=== PATIENT | female | born 1980 | race Caucasian/White ===

== ENCOUNTER 2023-04-25 14:00 | Outpatient (AMB) | payer OTHER, SELFPAY ==
--- NOTE | 2023-04-25 14:14 | MHC.OFFVIS ---
Intake Vital Signs 04/25/23 14:16 Height 5 ft 7 in Weight 170 lb BMI 26.6 BP 110/80 Blood Pressure Location Rt brachial Position Sitting Pulse 99 Pulse Source Pulse Oximeter Pulse Oximetry (%) 100 Oxygen Delivery Method Room Air Intake Visit Reasons: 11/09/22 LETTER SENT [employer]-Ptosis and facial numb-LVMs Intake Note: Pt is here for Ptosis of the (r) eye, ongoing for a long time. Allergies No Known Allergies Allergy (Verified 04/25/23 14:19) Medication List - Last Reconciled 04/25/23 by Queenie Palacio MD naproxen 500 mg PO BID HPI HPI Comments History of Present Illness Details 42y/o female comes for evaluation of left eyelid drooping and facial numbness.She noticed left eye lid drooping about 9 months ago - it was fluctuating. At time sit would be a complete ptosis and when she tries to open she was seeing double .she denies pain. when she is stressed the drooping is worse. she also reports numbness in her left cheek area .No pain or weakness but has tingling she has headaches 2-3/week.she has light sensitivty and usually frontal or occipital . No nausea. she has visual aura sometimes.she denies weakness , any change in speech or swallowing. she also has chronic sleep issues - loud snoring, frequent arousals. [facility] Medical History (Updated 04/25/23 @ 14:56 by Queenie Palacio MD) Hypersomnia Snoring Left facial numbness Ptosis of eyelid, left Migraine Hyperlipidemia Arthritis Seasonal allergies Asthma Eczema Surgical History History of cholecystectomy Family History (Updated 04/25/23 @ 14:50 by Queenie Palacio MD) Mother Cancer Clinical neurofibromatosis Brother Cancer Prostate CA Clinical neurofibromatosis Father No problems noted. Social History Household Members: Family Alcohol intake: never Patient Tobacco Use Status: Never used Tobacco Use of substances other than those prescribed or required for medical reasons: No Review of Systems Const Reports headache(s) ENT Reports headache(s) Musc Reports arthralgias Neuro Reports headache(s) Physical Exam Vital Signs: Last Vital Signs Pulse 99 04/25/23 14:16 BP 110/80 04/25/23 14:16 Pulse Ox 100 04/25/23 14:16 Oxygen Delivery Method Room Air 04/25/23 14:16 BMI result Body Mass Index 26.6 Const General: cooperative, healthy appearing and comfortable Nutritional Appearance: average body habitus Orientation/consciousness: patient oriented x3 Neuro General: patient oriented x3, gait normal, tone normal, moves all extremities and no focal motor deficits Cranial nerves: Yes Facial sensation intact/muscles of mastication intact, Yes Bilaterally intact EOM present, Yes Nystagmus not present, Yes Normal facial strength present, Yes Midline tongue present and Yes Symmetric palate elevation present Cognition (Neuro): normal cognition Gait exam (Neuro): Normal gait present Motor exam (neuro): 5/5 motor strength present throughout and Normal motor muscle tone present throughout Deep tendon reflexes (DTR's): Right triceps reflex intensity grade: 1+, Left triceps reflex intensity grade: 1+, Rt Biceps (C5, C6): 1+, Left biceps reflex intensity grade: 1+, Right brachioradialis reflex intensity grade: 1+, Left brachioradialis reflex intensity grade: 1+, Right patellar reflex intensity grade: 1+ and Left patellar reflex intensity grade: 1+ Coordination: [id number] test normal Results Reviewed Results Reviewed: MRI Brain with and without dilma - Nonspecific white matter changes . Assessment & Plan Assessment & Plan (1) Ptosis of eyelid, left: Code(s): H02.402 - Unspecified ptosis of left eyelid (2) Left facial numbness: Code(s): R20.0 - Anesthesia of skin (3) Migraine: Code(s): G43.909 - Migraine, unspecified, not intractable, without status migrainosus (4) Snoring: Code(s): R06.83 - Snoring (5) Hypersomnia: Code(s): G47.10 - Hypersomnia, unspecified Plan I will evaluate her with MRA brain to r/o aneurysm Check AchR antibody for possible myasthenia Magnesium 400mg qhs Riboflavin 400mg qam for migraines Home sleep test to r/o sleep apnea. Orders: Orders MR angio head wo/w con Today H02.402 - Unspecified ptosis of left eyelid, R20.0 - Anesthesia of skin Acetylcholine Receptor Binding Today H02.402 - Unspecified ptosis of left eyelid RT home sleep study Today G47.10 - Hypersomnia, unspecified, R06.83 - Snoring Medications: New magnesium oxide 400 mg PO BEDTIME 30 tabs 6RF riboflavin (vitamin B2) 400 mg PO QAM 30 tabs 6RF lorazepam 1 tab 60 minutes before procedure and 1 tab 10 minutes before procedure orally bedtime PRN; 2 tabs 0RF anxiety Coding Level of Care Code New Pt Level 4 (44089) Diagnoses Ptosis of eyelid, left H02.402 Left facial numbness R20.0 Migraine G43.909 Snoring R06.83 Hypersomnia G47.10
[2023-04-25 14:16] VITALS: BP 110/80; PULSE 99; O2SAT 100; BMI 26.6
== END 2023-04-25 15:05 | disposition home or self-care (01) ==
PROVIDERS: Visit Provider Psychiatry & Neurology Neurology
DX: H02.402 Unspecified ptosis of left eyelid (principal); R20.0 Anesthesia of skin; G43.909 Migraine, unspecified, not intractable, without status migrainosus; R06.83 Snoring; G47.10 Hypersomnia, unspecified
CPT/HCPCS: 99204

== ENCOUNTER → 2023-04-25 14:00 | Outpatient (BNVA) | payer OTHER, SELFPAY | PROVIDERS: Visit Provider Psychiatry & Neurology Neurology ==

== ENCOUNTER → 2023-06-05 13:33 | Outpatient (REF) | payer OTHER, SELFPAY | LOC: HO.SL 13:33 | PROVIDERS: Visit Provider Psychiatry & Neurology Neurology | DX: G47.10 Hypersomnia, unspecified (principal); R06.83 Snoring | CPT/HCPCS: 95806 ==

== ENCOUNTER → 2023-06-05 14:01 | Outpatient (BNV) | payer OTHER, SELFPAY | PROVIDERS: Visit Provider Psychiatry & Neurology Neurology | DX: G47.10 Hypersomnia, unspecified (principal) | CPT/HCPCS: 95806 ==

== ENCOUNTER 2023-06-19 10:56 | Outpatient (REF) | payer OTHER, SELFPAY ==
--- NOTE | ~2023-06-19 | MR_ITS ---
MR ANGIOGRAPHY BRAIN WITHOUT AND WITH CONTRAST CLINICAL INFORMATION: Ptosis of the left eyelid. Rule out aneurysm. COMPARISON: None available. TECHNIQUE: A MRA of the head is obtained without and following the administration of 8 mL of Gadavist intravenous contrast without complication. Vascular post-processing, including 2-dimensional and 3-dimensional reformatted images were created and reviewed on an independent workstation under concurrent physician supervision. Stenoses are graded per criteria similar to NASCET. FINDINGS: There is normal antegrade flow related signal within and contrast opacification of the anterior posterior intracranial arterial circulations without significant arterial stenosis and without acute arterial occlusion. No aneurysms and no high flow vascular malformations. MR/MR angio head wo/w con IMPRESSION: Unremarkable MRA of the head.
[2023-06-19] MEDS: gadobutroL 10 ML VIAL IVPUSH (12:05)
== END 2023-06-19 10:57 | disposition home or self-care (01) ==
LOC: HO.MRI 10:56
PROVIDERS: PCP Internal Medicine; Visit Provider Psychiatry & Neurology Neurology
DX: R20.0 Anesthesia of skin (principal); H02.402 Unspecified ptosis of left eyelid
CPT/HCPCS: 70546; A9585

== ENCOUNTER 2023-08-20 07:25 | Outpatient (AMB) | payer OTHER, SELFPAY ==
--- NOTE | 2023-08-20 07:36 | A.OFFVIS_ITS ---
Intake Vital Signs 08/20/23 07:37 Height 5 ft 7 in Weight 170 lb BMI 26.6 BP 112/74 Blood Pressure Location Rt brachial Position Sitting Respiration 16 Pulse 104 H Pulse Source Pulse Oximeter Pulse Oximetry (%) 98 Oxygen Delivery Method Room Air Intake Visit Reasons: 3 mnts f/u for Ptosis and facial numb - LVM Intake Note: Pt presents to the office for 3 month follow up for ptosis and facial numbness. [employer] Required: No Allergies No Known Allergies Allergy (Verified 08/20/23 07:37) Medication List - Last Reconciled 08/20/23 by Queenie Palacio MD lorazepam 1 tab 60 minutes before procedure and 1 tab 10 minutes before procedure orally bedtime PRN; magnesium oxide 400 mg PO BEDTIME naproxen 500 mg PO BID riboflavin (vitamin B2) 400 mg PO QAM HPI HPI Comments History of Present Illness Details 43y/o female comes for follow up of left eyelid drooping and facial numbness.Her migraines and her ptosis and facial sensory changes have decreased significantly.Now she has some left eyelid twitching only when stressed. MRA was normal Home sleep test was normal MRI showed minimal white matter changes. she has been taking magnesium 400mg qhs but did not start vit B 2 . Her headaches have been controlled.she has 1-2 episodes a month. she also has chronic sleep issues - loud snoring, frequent arousals. [facility] Medical History Hypersomnia Snoring Left facial numbness Ptosis of eyelid, left Migraine Hyperlipidemia Arthritis Seasonal allergies Asthma Eczema Surgical History History of cholecystectomy Family History Mother Cancer Clinical neurofibromatosis Brother Cancer Prostate CA Clinical neurofibromatosis Father No problems noted. Social History Household Members: Family Alcohol intake: never Patient Tobacco Use Status: Never used Tobacco Physical Exam Vital Signs: Last Vital Signs Pulse 104 H 08/20/23 07:37 Resp 16 08/20/23 07:37 BP 112/74 08/20/23 07:37 Pulse Ox 98 08/20/23 07:37 Oxygen Delivery Method Room Air 08/20/23 07:37 BMI result Body Mass Index 26.6 Const General: cooperative, healthy appearing and comfortable Nutritional Appearance: average body habitus Orientation/consciousness: patient oriented x3 Neuro General: patient oriented x3, gait normal, tone normal, moves all extremities and no focal motor deficits Cranial nerves: Yes Facial sensation intact/muscles of mastication intact, Yes Bilaterally intact EOM present, Yes Nystagmus not present, Yes Normal facial strength present, Yes Midline tongue present and Yes Symmetric palate elevation present Cognition (Neuro): normal cognition Gait exam (Neuro): Normal gait present Motor exam (neuro): 5/5 motor strength present throughout and Normal motor muscle tone present throughout Coordination: [id number] test normal Assessment & Plan Assessment & Plan (1) Ptosis of eyelid, left: Comment: resolved - likley related to stress and migraines Code(s): H02.402 - Unspecified ptosis of left eyelid (2) Left facial numbness: Code(s): R20.0 - Anesthesia of skin (3) Migraine: Code(s): G43.909 - Migraine, unspecified, not intractable, without status migrainosus (4) Snoring: Code(s): R06.83 - Snoring (5) Hypersomnia: Code(s): G47.10 - Hypersomnia, unspecified Plan Magnesium 400mg qhs Riboflavin 400mg qam for migraines Home sleep test was inconclusive . i will evaluate her with in lab sleep study Orders: Orders RT PSG in-lab sleep study Today G47.10 - Hypersomnia, unspecified, R06.83 - Snoring Coding Level of Care Code Est Pt Level 4 (30904) Diagnoses Ptosis of eyelid, left H02.402 Left facial numbness R20.0 Migraine G43.909 Snoring R06.83 Hypersomnia G47.10
[2023-08-20 07:37] VITALS: BP 112/74; PULSE 104; RESP 16; O2SAT 98; BMI 26.6
== END 2023-08-20 08:01 | disposition home or self-care (01) ==
PROVIDERS: PCP Internal Medicine; Visit Provider Psychiatry & Neurology Neurology
DX: H02.402 Unspecified ptosis of left eyelid (principal); R20.0 Anesthesia of skin; G43.909 Migraine, unspecified, not intractable, without status migrainosus; R06.83 Snoring; G47.10 Hypersomnia, unspecified
CPT/HCPCS: 99214

== ENCOUNTER → 2023-08-20 07:25 | Outpatient (BNVA) | payer OTHER, SELFPAY | PROVIDERS: PCP Internal Medicine; Visit Provider Psychiatry & Neurology Neurology | DX: G43.909 Migraine, unspecified, not intractable, without status migrainosus (principal); R20.0 Anesthesia of skin; R06.83 Snoring; G47.10 Hypersomnia, unspecified; Z79.899 Other long term (current) drug therapy | CPT/HCPCS: 99212 ==

== ENCOUNTER → 2023-08-29 20:30 | Outpatient (REF) | payer OTHER, SELFPAY | LOC: HO.SL 20:30 | PROVIDERS: PCP Internal Medicine; Visit Provider Psychiatry & Neurology Neurology | DX: G47.33 Obstructive sleep apnea (adult) (pediatric) (principal); G47.10 Hypersomnia, unspecified; R06.83 Snoring | CPT/HCPCS: 95810 ==

== ENCOUNTER → 2023-08-29 22:17 | Outpatient (BNV) | payer OTHER, SELFPAY | PROVIDERS: PCP Internal Medicine; Visit Provider Internal Medicine | DX: G47.33 Obstructive sleep apnea (adult) (pediatric) (principal) | CPT/HCPCS: 95810 ==